=== PATIENT | male | born 1955 | race Caucasian/White ===

== ENCOUNTER 2016-05-23 07:55 | Inpatient (IN) | payer OTHER ==
[~2016-05-23 07:55] MED LIST: Buffered Lidocaine 1% SYR 3ML* 3 ML/SYR SYRINGE INTRADERM ONE
[2016-05-23] MEDS ORDERED: Buffered Lidocaine 1% SYR 3ML* 3 ML/SYR SYRINGE ONE (08:31)
[2016-05-23] MEDS ORDERED: Clindamycin 900 MG IVPREMIX(* 900 MG/50 ML SDV IV ONE (08:31)
[2016-05-23] MEDS ORDERED: fentaNYL* 50 MCG/ML 2 ML VIAL (100 MCG VIAL) ONE ×2 (09:41→11:52)
[2016-05-23] MEDS ORDERED: Midazolam* 1 MG/ML 5 ML VIAL (5 MG) ONE (09:41)
[2016-05-23] MEDS ORDERED: Famotidine IV* 10 MG/ML 2 ML (20 mg) ONE (09:45)
[2016-05-23] MEDS ORDERED: Bupivacaine 0.25% EPI 200,000* 30 ML SDV ONE (10:22)
[2016-05-23] MEDS ORDERED: Ondansetron INJ* 2 MG/ML VIAL IV PRN ×2 (10:30→12:40)
[2016-05-23] MEDS ORDERED: PROCHLORPERAZINE INJ 5 MG/ML 2 ML VIAL IV PRN (10:30)
[2016-05-23] MEDS ORDERED: fentaNYL* 50 MCG/ML 2 ML VIAL (100 MCG VIAL) IV PRN (10:30)
[2016-05-23] MEDS ORDERED: Acetaminophen TAB* 325 MG PO PRN ×2 (10:30→12:40)
[2016-05-23] MEDS ORDERED: Scopolamine 1.5 mg* PATCH TRANSDERM PRN (10:30)
[2016-05-23] MEDS ORDERED: HYDROmorphone INJ* 1 MG/ML CARPUJECT SYRINGE IV PRN (10:30)
[2016-05-23] MEDS ORDERED: Cisatracurium* 2 MG/ML MDV 10 ML ONE (10:47)
[2016-05-23] MEDS ORDERED: Lidocaine 2% PF * 5 ML VIAL ONE (11:07)
[2016-05-23] MEDS ORDERED: Propofol* 10 MG/ML 20 ML BTL IV PUSH ONE (11:07)
[2016-05-23] MEDS ORDERED: EPHEDrine (Pressors)* 50 MG/ML VIAL ONE (11:07)
[2016-05-23] MEDS ORDERED: Dexamethasone IV* 4 MG/ML 1 ML (4 MG) ONE (11:07)
[2016-05-23] MEDS ORDERED: Desflurane* 240 ML INH ONE (11:11)
[2016-05-23] MEDS ORDERED: Hetastarch in NS* 500 ML IV ONE (11:28)
[2016-05-23] MEDS ORDERED: Ketorolac INJ* 30 MG/ML 1 ML VIAL ONE (12:30)
[2016-05-23] MEDS ORDERED: diPHENhydraMINE PO* 25 MG PO PRN (12:40)
[2016-05-23] MEDS ORDERED: Morphine INJ* 4 MG/ML 1 ML CARPUJECT IV PRN (12:40)
[2016-05-23] MEDS ORDERED: Bisacodyl SUPP* 10 MG SUPP PR PRN (12:40)
[2016-05-23] MEDS ORDERED: Ondansetron TAB* 4 MG PO PRN (12:40)
[2016-05-23] MEDS ORDERED: oxyCODONE/Acetamin 5/325 MG* TAB PO PRN (12:40)
[2016-05-23] MEDS ORDERED: diPHENhydraMINE IV* 50 MG/ML 1 ml VIAL (BENADRYL) IV PRN (12:40)
[2016-05-23] MEDS ORDERED: Polyethylene Glycol 3350* 17 GM PACKET PO PRN (12:40)
[2016-05-23] MEDS ORDERED: D5W 1/2 NS 1000 ML BAG* 1,000 ML IV SCH (13:00)
[2016-05-23] MEDS ORDERED: guaiFENesin LIQ* 100 MG/5 ML UDC PO PRN (13:09)
[2016-05-23] MEDS ORDERED: fentaNYL* 50 MCG/ML 5 ML VIAL (250 MCG VIAL) ONE (13:11)
--- NOTE | 2016-05-23 14:11 | RAD ---
Indication: Left hip arthroplasty Single view of the pelvis demonstrates left hip arthroplasty with dislocation of the left femoral component. IMPRESSION: Dislocation of the left femoral component.
[2016-05-23] MEDS: oxyCODONE/Acetamin 5/325 MG* TAB PO PRN ×3 (14:33→23:01)
[2016-05-23] MEDS: Nicotine Inhaler* 10 MG AMP Q2H PRN CRAVING INH ×2 (16:35→21:01)
[2016-05-23] MEDS ORDERED: Warfarin TAB(*) 6 MG PO ONE (17:00)
[2016-05-23] MEDS ORDERED: Mouth Piece, Nicotine* 1 EACH CARTRIDGE INH ONE (17:00)
[2016-05-23] MEDS: Clindamycin 600 MG IVPREMIX(* 600 MG/50 ML SDV IV SCH (17:56)
[2016-05-23] MEDS: Nicotine GUM* 2 MG PO PRN ×2 (17:56→21:01)
[2016-05-23] MEDS: Magnesium Hydroxide LIQ* 30 ML UDC PO SCH (20:52)
[2016-05-23] MEDS: Docusate CAP* 100 MG PO SCH (20:57)
[2016-05-23] MEDS: Heparin VIAL(*) 5000 UNITS/ML VIAL (FIVE THOUSAND) SUBCUT SCH (20:58)
--- NOTE | 2016-05-23 21:08 | OP ---
DATE OF OPERATION: 05/23/16 - ROOM #346 DATE OF : 59 SURGEON: Bryan Elizondo MD ASSISTANTS: 1. Parris Moore RPA 2. Dominique Gonzales RPA ANESTHESIOLOGIST: Tom Quick MD ANESTHESIA: General. PRE-OP DIAGNOSIS: Avascular necrosis, left hip. POST-OP DIAGNOSIS: Avascular necrosis, left hip. OPERATIVE PROCEDURE: Left total hip arthroplasty. INDICATIONS: Mr. Rodriguez is a 60-year-old male who had presented back in March with left hip pain. His x-rays had looked quite good and I had sent him for an MRI and this showed very specific avascular necrosis of the femoral head. I discussed with him that a total hip arthroplasty should work well to decrease his pain and improve his function. We did talk some about trying a core decompression or one of other surgeries for AVN, but when he heard that they may not work and that he might still need a total hip, he thought a total hip would probably be the best way to go. I discussed with him that a total hip would be reasonable, as would be the other ones, but doing the total hip is very understandable. Risks of surgery such as infection, scar formation, stiffness, DVT, pulmonary embolism, leg length discrepancy, instability, and eventual hardware failure were some of the risks discussed. He had been declared medically optimized and wished to proceed. ESTIMATED BLOOD LOSS: 150 cc. COMPLICATIONS: None. HARDWARE: Carlos A #9 reduced neck and L taper, -3.5 36-mm head, 50-mm Trilogy cup with 0-degree vitamin E impregnated liner. DESCRIPTION OF PROCEDURE: The patient was brought to the OR and general endotracheal anesthesia was established. Pena catheter was placed. He was then rolled into the right lateral decubitus position and an axillary roll was placed. Posts were also padded and he was nice and secure on the table. Left hip area was prepped and then draped. Skin over the incisional area was infiltrated using 0.25% Marcaine with epinephrine. A total of 60 cc would be used through the case. Incision was made centered over the greater trochanter extending proximally and distally for about 10 cm. Incision was carried down through the skin and subcutaneous fat. Small bleeders encountered were ligated using electrocautery. The fascia was exposed and sharply incised. Muscle was bluntly split proximally. Nice exposure of the greater trochanteric bursa was obtained. Bursa was taken down using electrocautery and with palpation, I could easily feel his piriformis tendon. Sharp Hohmann was then placed under the gluteus medius/gluteus minimus and nice exposure of piriformis and short external rotators were obtained. Electrocautery was used to take down piriformis, short external rotators, and capsule together. When the capsule was entered, small gush of joint fluid was encountered. T-capsulotomy was made and the hip was easily dislocated. Damage on the femoral head could be seen and was seen even easier once the femoral head was resected. Anterior C-retractor was placed as was a broad Hohmann inferiorly and nice exposure of the acetabulum was obtained. Labrum was sharply taken down from the edges of the acetabulum and reaming was begun with a 44. I had templated him to a 52, but even the 44 appeared as if it would almost have a [id number] fit. He was deepened just a little bit as I did not have much room to work medially. He was then reamed with a 46 and then at 47, I still had some cartilage left and decision was made to continue to a 50. 48- and 49-mm reamers were run and at that point, I had nice bleeding bone along the entirety. 50-mm cup was then impacted into place. Nice secure bite was obtained. Two screws were placed and a wonderful bite was obtained. Trial liner was placed and attention was turned to the proximal femur. Box osteotome was used to open the femoral canal and a canal finder was placed. I had some chatter just with passing the canal finder as he had very good bone of his femur. Beginning with a 4 broach, he was progressively broached and I had templated him to a 9. I had templated that I would need the reduced neck with a minus head because of his anatomy. He was progressively broached and actually with a 7.5, I thought I had a nice solid fit and he was trialed first with a standard neck and a minus head. He was reduced but he was long and tight. Reduced neck was then placed with a minus head and his leg length appeared to be right on the money. He also seemed to have very good stability as I could flex him up past 120 degrees, internally rotate him, and he would not even start to lever out until past 60 degrees. In full adduction, coming even to 90 degrees, he did not fully come out. He was a little more tight in extension as the hip itself would not come much past about 25 degrees, but he was not that tight as the knee did not extend while bringing him into extension. With taking him out the 7.5, however, was just a little bit loose and a 9 broach was then placed. With the [address], he was again taken through range of motion and this time, the broach did not loosen. Trial instrumentation was removed and the flat liner was impacted into place. 9 reduced neck M/L taper was also impacted into place. -3.5 mm, 32-mm head was also impacted and he was re-reduced. With taking him through motion, it appeared that he may occasionally twinge right on the posterior lip of the acetabulum and this was taken down using the osteotome and a rongeur. Only a small piece of bone was taken down, but this did seem to improve that he would not hit on that posterior aspect. Capsule and short external rotators including piriformis were repaired to the back side of the greater trochanter. Taking him now through motion seemed to improve his stability as well and hip was again copiously pulse lavaged. Remainder of the local was given. Fascia was repaired using interrupted #1 Vicryl sutures. Subcutaneous tissues were reapproximated using 2-0 Vicryl's. Skin was closed using berta. Sterile dressing was applied. The patient was then rolled on to the hospital bed and extubated in the OR. He was then stable on transfer to the recovery room. [id number]/[facility] #: [id number] [facility] CENTERLeonor
[2016-05-24] MEDS: Clindamycin 600 MG IVPREMIX(* 600 MG/50 ML SDV IV SCH ×2 (01:02→10:01)
[2016-05-24] MEDS: oxyCODONE/Acetamin 5/325 MG* TAB PO PRN ×4 (03:39→21:16)
[2016-05-24] MEDS: Nicotine Inhaler* 10 MG AMP Q2H PRN CRAVING INH (06:47)
[2016-05-24] MEDS: Nicotine GUM* 2 MG PO PRN ×2 (06:47→19:11)
[2016-05-24 06:55] LABS: Hematocrit 30 % (42-52); Hemoglobin 10.2 g/dl (14.0-18.0)
[2016-05-24 07:11] LABS: BUN/Creatinine Ratio 10.8 (8-20); Calcium 7.8 mg/dL (8.6-10.3); EGFR African American 139.7 (>60); EGFR Non-African American 108.6 (>60)
--- NOTE | 2016-05-24 07:54 | PN ---
Progress Note - Progress Note SOAP: Subjective: []Patient seen at bedside. Doing well, pain well managed. Denies chest pain, shortness of breath, dizziness. Objective: [] Vital Signs Temp 97.8 F 05/24/16 03:35 Pulse 81 05/24/16 03:35 Resp 20 05/24/16 05:39 BP 115/67 05/24/16 03:35 Pulse Ox 98 05/24/16 03:35 Intake & Output 05/23/16 05/24/16 05/24/16 18:59 06:59 18:59 Intake Total 2360 3563 Output Total 330 1100 Balance 2030 2463 Weight 162 lb Intake: IV Fluids 1900 963 CLINDAMYCIN 900 MG 50 D5W 1/ NS 963 LR 1400 Lactated Ringer's 450 Oral 460 2600 Output: Pena 300 1100 Residual 30 Pena 16 Fr 30 Other: # Bowel Movements 0 Laboratory Results - last 24 hr 05/24/16 05/24/16 05/24/16 06:42 06:42 06:42 Hgb 10.2 L Hct 30 L INR (Anticoag Therapy) 1.21 H Sodium 128 L Potassium 4.0 Chloride 100 L Carbon Dioxide 24 Anion Gap 4 BUN 8 Creatinine 0.74 Est GFR ( Amer) 139.7 Est GFR (Non-Af Amer) 108.6 BUN/Creatinine Ratio 10.8 Glucose 154 H Calcium 7.8 L Left hip dressing with small amount of old bloody drainage calf soft and non tender +DF/PF left ankle Bishop's negative neuro intact Assessment: []s/p Left total hip arthoplasty POD#1 Plan: []Pt/OT WBAT Coumadin 8 mg today/ SCD's Discharge home 2 days Await path report from pathology
[2016-05-24] MEDS: Docusate CAP* 100 MG PO SCH ×2 (08:14→21:19)
[2016-05-24] MEDS: oxyCODONE TAB* 5 MG TAB PO PRN (08:15)
[2016-05-24] MEDS: Nicotine PATCH 21 MG/24 HR* PATCH TRANSDERM SCH (08:16)
[2016-05-24] MEDS: Heparin VIAL(*) 5000 UNITS/ML VIAL (FIVE THOUSAND) SUBCUT SCH ×2 (08:16→21:16)
[2016-05-24] MEDS: Magnesium Hydroxide LIQ* 30 ML UDC PO SCH ×2 (08:19→21:19)
[2016-05-24] MEDS ORDERED: Warfarin TAB(*) 4 MG PO ONE (17:00)
[2016-05-24] MEDS: Nicotine Patch Removal NOTE PATCH OFF SCH (21:19)
[2016-05-25] MEDS: oxyCODONE/Acetamin 5/325 MG* TAB PO PRN ×5 (01:42→21:52)
[2016-05-25 06:39] LABS: Hematocrit 32 % (42-52); Hemoglobin 10.7 g/dl (14.0-18.0)
[2016-05-25] MEDS: Docusate CAP* 100 MG PO SCH ×2 (08:54→21:54)
[2016-05-25] MEDS: Magnesium Hydroxide LIQ* 30 ML UDC PO SCH ×2 (08:54→21:54)
[2016-05-25] MEDS ORDERED: Influenza VAC *QUAD* 2016-17* 0.5 ML SYRINGE IM ONE (09:00)
[2016-05-25] MEDS: Nicotine PATCH 21 MG/24 HR* PATCH TRANSDERM SCH (09:01)
[2016-05-25] MEDS ORDERED: Warfarin TAB(*) 5 MG PO ONE (17:00)
[2016-05-25] MEDS: Nicotine Patch Removal NOTE PATCH OFF SCH (21:55)
[2016-05-26] MEDS: oxyCODONE TAB* 5 MG TAB PO PRN (01:17)
[2016-05-26] MEDS: oxyCODONE/Acetamin 5/325 MG* TAB PO PRN ×2 (06:40→11:02)
[2016-05-26 07:09] LABS: Hematocrit 31 % (42-52); Hemoglobin 10.5 g/dl (14.0-18.0)
--- NOTE | 2016-05-26 07:50 | PN ---
Progress Note - Progress Note SOAP: Subjective: []Patient seen at bedside. Pain well managed. Would like to go home today. Objective: [] Vital Signs Temp 98.1 F 05/26/16 04:21 Pulse 91 05/26/16 04:21 Resp 20 05/26/16 06:40 BP 110/71 05/26/16 04:21 Pulse Ox 97 05/26/16 04:21 Intake & Output 05/25/16 05/26/16 05/26/16 18:59 06:59 18:59 Intake Total 1490 740 Output Total 1075 1800 Balance 415 -1060 Intake: Oral 1490 740 Output: Urine 1075 1800 Laboratory Results - last 24 hr 05/26/16 05/26/16 06:44 06:44 Hgb 10.5 L Hct 31 L INR (Anticoag Therapy) 1.46 H Left hip incision with moderate eccymosis moderate serosanguenous drainage on ABD New dressing applied calf non tender and soft Bishop's sign is negative +DF/PF- neuro intact Assessment: []s/p left total hip arthroplasty POD#3 Plan: []Discharge home today Coumadin INR Mondays and .
[2016-05-26 08:07] VITALS: BP 122/64
[2016-05-26] MEDS: Nicotine PATCH 21 MG/24 HR* PATCH TRANSDERM SCH (08:51)
[2016-05-26] MEDS: Docusate CAP* 100 MG PO SCH (08:57)
[2016-05-26] MEDS: Magnesium Hydroxide LIQ* 30 ML UDC PO SCH (08:57)
[2016-05-26] MEDS ORDERED: Scopolamine PATCH Remove* 1 NOTE MISC PATCH OFF ONE (10:31)
--- NOTE | 2016-05-26 22:42 | DS ---
DISCHARGE SUMMARY: DATE OF ADMISSION: 05/23/16 DATE OF DISCHARGE: 05/26/16 ATTENDING SURGEON: Dr. Bryan Elizondo. ADMISSION DIAGNOSIS: Avascular necrosis of the left hip. DISCHARGE DIAGNOSIS: Avascular necrosis of the left hip. SURGERY PERFORMED: Left total hip arthroplasty. HOSPITAL COURSE: The patient is a 60-year-old male who suffered with left hip pain worsening in March 2016. He underwent an MRI, which revealed avascular necrosis of the femoral head. Options of cord decompression versus total hip arthroplasty were discussed by Dr. Elizondo and the patient elected to proceed with total hip arthroplasty. Under-standing the risks and benefits of the procedure, the patient elected to proceed with the above surgical procedure and was taken to the operating room under the care of Dr. Bryan Elizondo on the date of 05/23/16. The patient tolerated the aforementioned procedure without any intraoperative or postoperative complications. Postoperatively, the patient progressed satisfactorily with his physical therapy and occupational therapy goals. He was placed on Coumadin for postoperative DVT prophylaxis. He has been able to bear weight as tolerated on the left lower extremity. It was felt he had no postoperative medical complications. He was found to be stable for discharge from medical and orthopedic standpoint on the date of 05/26. DISCHARGE MEDICATIONS: The patient will be sent home Coumadin 2 mg tablets provided, recommend 8 mg of Coumadin on the evening of 05/26/16, 4 mg of Coumadin on the evening of 05/27/16, 6 mg of Coumadin on the evening of 05/28/16 , and 4 mg of Coumadin on the evening of 05/29/16. The patient will undergo INR labs every Monday and with dosages to follow his lab results. He will be provided a prescription of Percocet 5/325 mg 1 to 2 tablets q.4 hours p.r.n. pain #90 with no refills. CONDITION ON DISCHARGE: The patient is stable. Alert and oriented x3. Vital signs are stable. Incision is healing without evidence of infection. He has moderate ecchymosis and mild amount of serosanguineous drainage. Recommend he change his dressing daily as needed. He may shower at home. No bathtub or soaking of the incision. Recommend to follow up in the office with Dr. Elizondo in roughly 3 to 4 weeks for clinical reevaluation. Recommend calling the office if he has any problems with his wound or any medication questions. ANUPAM BERNAL [id number]/[facility] #: [id number] JR
== END 2016-05-26 12:30 | disposition home health service (06) | DRG 301 ==
LOC: AA 07:55 → SSU 14:09
PROVIDERS: ADMIT Orthopaedic Surgery; ATTEND Orthopaedic Surgery
PROC: 0SRB02A Replacement of Left Hip Joint with Metal on Polyethylene Synthetic Substitute, Uncemented, Open Approach (ICD-10-PCS; principal; 2016-05-23 09:30)
PROC: 3E0234Z Introduction of Serum, Toxoid and Vaccine into Muscle, Percutaneous Approach (ICD-10-PCS; 2016-05-25)
DX: M87.852 Other osteonecrosis, left femur (principal); J44.9 Chronic obstructive pulmonary disease, unspecified; Z88.8 Allergy status to other drugs, medicaments and biological substances; Z88.0 Allergy status to penicillin; Z80.9 Family history of malignant neoplasm, unspecified; D16.22 Benign neoplasm of long bones of left lower limb; G89.29 Other chronic pain; Z23 Encounter for immunization; Z82.49 Family history of ischemic heart disease and other diseases of the circulatory system; F17.210 Nicotine dependence, cigarettes, uncomplicated
CPT/HCPCS: 36415; 72170; 80048; 85014; 85018; 85610; 88304; 88311; 90686; A9270-GY; C1713; C1776; J1100; J1644; J1885; J2250; J2704; J3010

== ENCOUNTER 2018-08-22 21:42 | Emergency (ER) | payer OTHER ==
[2018-08-22] MEDS ORDERED: oxyCODONE/Acetamin 5/325 MG* TAB PO ONE (22:01)
--- NOTE | 2018-08-22 22:12 | ED ---
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 He rates his pain as a 7/10 in severity. He has swelling over his right wrist. Per triage note, the patient admits to EtOH use today. - History of Current Complaint Chief Complaint: EDExtremityUpper Stated Complaint: POSSIBLE BROKEN RIGHT WRIST PER PT Time Seen by Provider: 08/22/18 21:58 Hx Obtained From: Patient, EMS Mechanism Of Injury: Fall From A Standing Position Onset/Duration: Started Hours Ago, Still Present Timing: Constant Severity Initially: Moderate Severity Currently: Moderate Pain Location: Other: - right wrist Aggravating Factor(s): Nothing Alleviating Factor(s): Nothing Associated Signs & Symptoms: Negative: Fever - Allergies/Home Medications Allergies/Adverse Reactions: Allergies Allergy/AdvReac Type Severity Reaction Status Date / Time MS Penicillins [Penicillins] Allergy Intermediate Hives Verified 05/16/16 10:07 PMH/Surg Hx/FS Hx/Imm Hx Musculoskeletal History: Reports: Hx Arthritis - LOW BACK, WRISTS, HANDS, HIPS Sensory History: Denies: Hx Deafness EENT History: Denies: Hx Deafness - Surgical History Surgery Procedure, Year, and Place: 1993 VASECTOMY GENEIA GEN. 2004 EXTERNOL FIXATOR LEFT WRIST [place] Hx Anesthesia Reactions: No Infectious Disease History: No Infectious Disease History: Denies: Traveled Outside the [place] in Last 30 Days - Family History Known Family History: Negative: Blood Disorder - Social History Alcohol Use: Daily Alcohol Amount: 4-5 drinks Substance Use Type: Reports: None Smoking Status (MU): Heavy Every Day Tobacco Smoker Type: Cigarettes Amount Used/How Often: 1 PPD 40 YRS Length of Time of Smoking/Using Tobacco: 40 YRS Have You Smoked in the Last Year: Yes Review of Systems Negative: Fever Positive: Arthralgia - right wrist pain, Other - positive: swelling over right wrist All Other Systems Reviewed And Are Negative: Yes Physical Exam - Summary Physical Exam Summary: VITAL SIGNS: Reviewed. GENERAL: Patient is a well-developed and nourished MALE who is lying comfortable in the stretcher. Patient is not in any acute respiratory distress. HEAD AND FACE: No signs of trauma. No ecchymosis, hematomas or skull depressions. No sinus tenderness. EYES: PERRLA, EOMI x 2, No injected conjunctiva, no nystagmus. EARS: Hearing grossly intact. Ear canals and tympanic membranes are within normal limits. MOUTH: Oropharynx within normal limits. NECK: Supple, trachea is midline, no adenopathy, no JVD, no carotid bruit, no c- spine tenderness, neck with full ROM CHEST: Symmetric, no tenderness at palpation LUNGS: Clear to auscultation bilaterally. No wheezing or crackles. CVS: Regular rate and rhythm, S1 and S2 present, no murmurs or gallops appreciated. ABDOMEN: Soft, non-tender. No signs of distention. No rebound no guarding, and no masses palpated. Bowel sounds are normal. EXTREMITIES: Swelling over right wrist, decreased ROM due to pain, neurovascularly intact distally. NEURO: Alert and oriented x 3. No acute neurological deficits. Speech is normal and follows commands. SKIN: Dry and warm Triage Information Reviewed: Yes Vital Signs On Initial Exam: Initial Vitals Temp Pulse Resp BP Pulse Ox 98.0 F 78 18 98/65 98 08/22/18 21:49 08/22/18 21:49 08/22/18 21:49 08/22/18 21:49 08/22/18 21:49 Vital Signs Reviewed: Yes Procedures - Splinting Right Upper Extremity Location: wrist Hand-Made Type: orthoglass Splint: sugar-tong Pre-Proc Neuro Vasc Exam: normal Post-Proc Neuro Vasc Exam: normal - Joint Reduction Right Joint Reduction Site: wrist (R) Specify Other Joint Reduced: Right wrist used hematomal block, lidocaine 2% with epi Reduction Attempts: 1 - Manipulation of right wrist manipulation of right wrist to reduce displacement Pre-Procedure NV Exam: Yes Post Joint Reduction Film: there is no change Diagnostics - Vital Signs Vital Signs Temp Pulse Resp BP Pulse Ox 08/22/18 21:49 98.0 F 78 18 98/65 98 - Laboratory Lab Statement: Any lab studies that have been ordered have been reviewed, and results considered in the medical decision making process. - Radiology wrist x-ray Radiology Interpretation Completed By: ED Physician Summary of Radiographic Findings: Distal radial fracture with dorsal displacement. Pending official imaging report. second wrist x-ray Radiology Interpretation Completed By: ED Physician Summary of Radiographic Findings: There is no change. Pending official imaging report. 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 The physical exam revealed swelling over right wrist, decreased ROM due to pain, neurovascularly intact distally. Wrist x-ray showed Distal radial fracture with dorsal displacement. In the ED course the patient was given Percocet PO, and Lidocaine. There was a reduction and splinting of the right wrist. Manipulation of the right wrist was to reduce displacement. The patient will be discharged with a prescription for Percocet and was instructed to follow up with yemi Luna, tomorrow. The patient is agreeable with this plan. - Diagnoses Provider Diagnoses: Distal radius fracture, right Discharge - Sign-Out/Discharge Documenting (check all that apply): Patient Departure - DC Patient Received Moderate/Deep Sedation with Procedure: No - Discharge Plan Condition: Stable Disposition: HOME Prescriptions: oxyCODONE/Acetamin 5/325 MG* [Percocet 5/325 TAB*] 1 tab PO Q6H PRN #14 tab MDD 4 PRN Reason: Pain Referrals: Nigel Brennan DO [Primary Care Provider] - (2-3 days) Nigel Cardona MD [Medical Doctor] - 1 Day Additional Instructions: PLEASE RETURN TO THE ED IMMEDIATELY FOR WORSENING OR CONCERNING SYMPTOMS. - Billing Disposition and Condition Condition: STABLE Disposition: Home - Attestation Statements Document Initiated by Scribe: Yes Documenting Scribe: Franc Pope Provider For Whom Paola is Documenting (Include Credential): Rachel Tyler MD Scribe Attestation: Franc Strickland, kamilleibed for Rachel Tyler MD on 08/23/18 at 0559. Scribe Documentation Reviewed: Yes Provider Attestation: The documentation as recorded by the Franc lawton accurately reflects the service I personally performed and the decisions made by John green MD Status of Scribe Document: Viewed
[2018-08-22] MEDS ORDERED: Lidocaine 2% EPI 1:200000 MPF*10-20 ML VIAL ONE (22:25)
--- OUTSIDE RECORDS SUMMARY | 2018-08-22 22:33 | XMS REPORT | Continuity of Care Document ---
:1955 External Reference #:[id number] Author Name Thomas Ayala M.D. Address [address] [place] [address] Care Team Providers Name Role Phone Session Reggie MORALEZ Care Team Information Entertainment Centre Manager Unavailable Session Reggie MORALEZ Primary Care Physician Unavailable Payers Date Identification Numbers Payment Provider Subscriber Effective: 2018 Policy Number: [id number] [facility] Anirudh Rodriguez PayID: [id number] [address] [address] [place] [address] Advance Directives Description No Information Available Problems Description No Information Family History Date Family Member(s) Observation Comments Father Cancer Mother Cancer Social History Type Date Description Comments Sex Unknown 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 [employer] Tobacco Use Start: Unknown Current Cigarette Smoker 1 40 year history Pack Daily Tobacco Use Start: Unknown Never Smoked Cigars Tobacco Use Start: Unknown Never Smoked A Pipe Smokeless Tobacco Never Used Smokeless Tobacco ETOH Use PT Consumes Alcohol Daily Tobacco Use Start: Unknown Heavy tobacco smoker (more than 10 cigarettes/day) Smoking Status Reviewed: 08/20/18 Heavy tobacco smoker (more than 10 cigarettes/day) Allergies, Adverse Reactions, Alerts Active Allergies Reaction Severity Comments Date Penicillin 07/25/2018 Medications Active Medications SIG Qnty Indications Ordering Provider Date Multivitamin Adult every day Unknown Chewtabs Mucinex 1 by mouth twice Unknown 600mg Tablets ER a day 12HR Claritin-D 24 Hour Unknown 10-240mg Tablets ER 24HR History Medications Vitamin D3 Adult Gummies 2 daily Unknown - 07/24/2018 1000Unit Chewtabs Ginkoba 1 by mouth every day Unknown - 07/24/2018 40mg Tablets Aspirin 81 1 by mouth every day Unknown - 07/24/[address] Zinc 1 by mouth every day Unknown - 07/24/2018 30mg Capsules Claritin 1 by mouth every day Unknown - 08/20/2018 10mg Capsules Immunizations Description No Information Available Vital Signs Date Vital Result Comment 08/20/2018 3:09pm Weight 168.00 lb Weight 76.205 kg Height 65 inches 5'5" Height in cm's 165.1 cm BMI (Body Mass Index) 28.0 kg/m2 07/25/2018 9:25am Weight 168.00 lb Weight 76.205 kg Height 65 inches 5'5" Height in cm's 165.1 cm BMI (Body Mass Index) 28.0 kg/m2 Results Description No Information Available Procedures Date Code Description Status 08/20/2018 81445 Tympanostomy W/Tube Local Or Topical Anes. Completed 07/25/2018 18234 Nasopharyngoscopy Completed Encounters Type Date Location Provider Dx Diagnosis Office Visit 07/25/2018 Yazmin Still H92.02 Otalgia, left ear 9:15a 04/17/07 Mary Ayala H65.02 Acute serous otitis media, left ear Plan of Treatment 08/20/2018 - Thomas Ayala M.D.H65.02 Acute serous otitis media, left earComments:The patient had a myringotomy with tube insertion on the left side for a persistent effusion. I putin Ofloxacin drops. He may have some clear drainage. If it looks infected he should call for some drops.Follow up:FU with Dilcia in a month.
[2018-08-23 00:14] VITALS: BP 111/66
[2018-08-23 11:45] LABS: Hepatitis C Antibody Nonreactive (Nonreactive)
== END 2018-08-23 | disposition home or self-care (01) ==
LOC: ED 21:42
DX: S52.501A Unspecified fracture of the lower end of right radius, initial encounter for closed fracture (principal); S52.601A Unspecified fracture of lower end of right ulna, initial encounter for closed fracture; M25.531 Pain in right wrist; F17.210 Nicotine dependence, cigarettes, uncomplicated; W01.0XXA Fall on same level from slipping, tripping and stumbling without subsequent striking against object, initial encounter; Y92.9 Unspecified place or not applicable; Z88.0 Allergy status to penicillin
CPT/HCPCS: 25680; 36415; 86703; 86803; 99282; A9270-GY

== ENCOUNTER 2018-08-29 11:39 | Day surgery (SDC) | payer OTHER ==
[~2018-08-29 11:39] MED LIST changes: -Buffered Lidocaine 1% SYR 3ML* 3 ML/SYR SYRINGE INTRADERM ONE; +Buffered Lidocaine 1% SYRIN* 1 ML/SYRINGE INTRADERM ONE; +Lactated Ringers 1000 ML Bag* 1,000 ML IV SCH; +Sodium Citrate/Citric Acid* 15 ML UDC PO ONE
[2018-08-29] MEDS ORDERED: Sodium Citrate/Citric Acid* 15 ML UDC ONE (12:01)
[2018-08-29] MEDS ORDERED: Clindamycin 900 MG IVPREMIX(* 900 MG/50 ML SDV IV ONE (12:01)
[2018-08-29] MEDS ORDERED: fentaNYL* 50 MCG/ML 2 ML VIAL (100 MCG VIAL) ONE ×3 (14:07→16:56)
[2018-08-29] MEDS ORDERED: Midazolam* 1 MG/ML 2 ML VIAL (2 MG) ONE (14:07)
[2018-08-29] MEDS ORDERED: Lidocaine 1% MPF wEPI 200,000* 30 ML SDV ONE (14:08)
[2018-08-29] MEDS ORDERED: Lidocaine 2% PF * 5 ML VIAL ONE (14:08)
[2018-08-29] MEDS ORDERED: Propofol* 10 MG/ML 20 ML BTL ONE (14:08)
[2018-08-29] MEDS ORDERED: Bupivacaine 0.5% W/EPI SDV* 30 ML VIAL ONE ×2 (14:18→14:36)
[2018-08-29] MEDS ORDERED: Naloxone* 0.4 MG/ML 1 ML VIAL IV PRN (15:30)
[2018-08-29] MEDS ORDERED: Ondansetron INJ* 2 MG/ML VIAL IV PRN (15:35)
[2018-08-29] MEDS: fentaNYL* 50 MCG/ML 2 ML VIAL (100 MCG VIAL) IV PRN ×4 (16:31→17:17)
[2018-08-29] MEDS ORDERED: HYDROcodone/ACETAMIN 5-325 MG* 1 TAB ONE (16:38)
[2018-08-29] MEDS ORDERED: Ketorolac INJ* 30 MG/ML 1 ML VIAL ONE (16:38)
[2018-08-29 18:04] VITALS: BP 155/91
--- NOTE | 2018-08-30 01:39 | OP ---
DATE OF OPERATION: 08/29/18 [facility] DATE OF : 59 SURGEON: Nigel Cardona MD [place] TECHNICIAN: ANUPAM Schumacher. A physician land surveyor assistant was required for the length of the procedure for help with instrumentation, retraction, the patient positioning, and closure. ANESTHESIOLOGIST: Dr. Marshall Saini. ANESTHESIA: General anesthesia, 7 cc of 0.5% Marcaine with epinephrine local anesthesia. PRE-OP DIAGNOSES: 1. Right distal radius fracture, displaced. 2. Possible right distal ulna fracture. POST-OP DIAGNOSES: 1. Right distal radius fracture, displaced. 2. No clear right distal ulna fracture. OPERATIVE PROCEDURE: Open reduction internal fixation, right distal radius fracture with a volar locking plate. INDICATIONS: The patient is a 62-year-old man, left-hand dominant, retired, who injured his right wrist on 08/22/18, seven days preoperatively when he tripped over his dog and fell on an outstretched right hand and wrist. The patient went to the emergency room where he was closed reduced and splinted. I saw the patient in clinic on 08/23/18. I got new x-rays of the right wrist and also evaluated pre and postreduction films from the emergency room. The patient had a right distal radius fracture with significant displacement. Significant dorsal translation and increased dorsal tilt at the fracture site. Extraarticular but clearly very unstable and very displaced. There was possibly a distal ulnar fracture of the ulnar styloid process, dorsally, present as well. I could not be sure of this as I reviewed all the radiographs. I encouraged the patient to cut down or quit smoking to help the bony healing. Discussed risks and potential complications. The patient opted for surgery. ANTIBIOTICS: Clindamycin 900 mg IV. IV FLUIDS: See Anesthesia note. TOURNIQUET TIME: 89 minutes at 250 mmHg, right upper arm. [id number] TIME: 89 minutes. RADIATION EXPOSURE: Mini C-arm utilized. Time of radiation exposure not currently available. SPECIMEN: None. IMPLANTS: Synthes polyaxial volar distal locking plate, 3 hole, wide. COMPLICATIONS: None. ESTIMATED BLOOD LOSS: Minimal. DESCRIPTION OF PROCEDURE: In the preoperative holding, the patient signed a written consent. Operative extremity was marked in the preoperative holding. The patient went back to the operating room and stayed supine on the stretcher. The patient was sedated and LMA was placed. Hand table was applied to the stretcher. A tourniquet was applied to the right upper arm. The right upper extremity was then prepped and draped. Surgical time- out performed. Esmarch was applied and tourniquet elevated to 250 mmHg. A standard skin incision, longitudinal, 7 cm, overlying the FCR tendon was made. Dissected down to the FCR tendon. Incised the sheath, superficial and then deep to the FCR tendon. Retracted that. Retracted the FPL ulna. Incised the pronator quadratus of the radial aspect of the distal radius. Encountered the fracture site. Irrigation. Debridement. The patient had significant displacement at the fracture site and very unstable at first. This would not have healed or would have gone very poorly nonoperatively. I debrided the fracture site with the rongeur and a curette. I removed several flecks of bone. There was a comminuted window in the central component of the distal fragment that was loosened and this was removed. With some digital manipulation, I was able to reduce the fracture. I placed two 0.062 K-wires across the radial styloid to hold provisional fixation of the fracture. Sized the plates. Decided that this would be best for a wide plate. I pinned the plate in place. Mini C-arm imaging confirmed good reduction and good placement of plate. I next placed a 2.4-mm nonlocking screw through the oval hole proximally. I then slid the plate a little proximally. I placed a nonlocking 2.4-mm screw in the distal most row. I placed this after removing the 2 radial styloid pins and effecting an improved volar tilt. I next placed some locking screws distally. I obtained some mini-C arm imaging, which showed great reduction and good placement of screws. I visually inspected the plate and showed excellent reduction and placement of plate. I removed my distal non-locking screw and placed all locking screws with the exception of any oval hole, I placed a 2.7-mm nonlocking screw. Rest of the screws were 2.4-mm locking. Final x-rays obtained. Irrigation. I closed the FCR subsheath to the pronator quadratus partially with multiple stitches, [id number] using Vicryl 2-0 suture. Subcutaneous closure with buried simple stitches using Vicryl 3-0 suture. Running closure of the skin with a nylon 4-0 suture. Local anesthesia injected approximately 7 cc just proximal to the incision site. Xeroform, 4x4s , sterile Webril, volar splint, made a plaster overwrapped with an Hernan bandage. The patient was placed in sling. The patient had LMA removed and taken to the PACU. DISPOSITION: The patient discharged home when medically stable. The patient will remain in the volar splint until he follows up in clinic with me. Instructions to move his fingers. I provided a limited prescription for [place] to take as needed for pain and the patient was given 3 days of Bactrim for infection prophylaxis given his smoking history. The patient will follow up with me in the clinic in approximately 10 days postoperative with x-rays, removal of sutures, and transition into a removable wrist brace and to start a physical therapy. [id number]/CPS #: [id number] MTDD
== END 2018-08-29 18:06 | disposition home or self-care (01) ==
LOC: OR 11:39
PROVIDERS: ATTEND Orthopaedic Surgery
DX: S52.551A Other extraarticular fracture of lower end of right radius, initial encounter for closed fracture (principal); Z72.0 Tobacco use; Z88.0 Allergy status to penicillin; W01.0XXA Fall on same level from slipping, tripping and stumbling without subsequent striking against object, initial encounter; Y92.9 Unspecified place or not applicable
CPT/HCPCS: 76000; A9270-GY; C1713; C1776; J1885; J2001; J2250; J2704; J3010

== ENCOUNTER 2021-08-12 08:29 | Observation (INO) ==
[~2021-08-12 08:29] MED LIST changes: +Buffered Lidocaine 1% SYRIN 1 ml INTRADERM ONE; -Buffered Lidocaine 1% SYRIN* 1 ML/SYRINGE INTRADERM ONE; -Lactated Ringers 1000 ML Bag* 1,000 ML IV SCH; +Lactated Ringers 1000 ml BAG 1,000 ML IV SCH; -Sodium Citrate/Citric Acid* 15 ML UDC PO ONE
[2021-08-12] MEDS ORDERED: Clindamycin 900 MG/D5W BAG 900 MG/50 ML BAG IVPB ONE (08:48)
[2021-08-12] MEDS ORDERED: Lidocaine 1% VIAL 10 MG/ML VIAL ONE ×2 (09:24→09:26)
[2021-08-12] MEDS ORDERED: fentaNYL 250 mcg/5 ml 50 MCG/ML 5 ml VIAL (250 MCG) ONE (09:25)
[2021-08-12] MEDS ORDERED: Propofol 10 MG/ML 20 ML BTL ONE ×2 (09:26→11:12)
[2021-08-12] MEDS ORDERED: Midazolam 5 mg/5 ml VIAL 1 mg/ml 5 ml VIAL (5 mg) ONE (09:26)
[2021-08-12] MEDS ORDERED: Bupivacaine 0.5% SDV PF 30ML VIAL ONE (10:23)
[2021-08-12] MEDS ORDERED: Ondansetron 4 mg VIAL 2 MG/ML 2 ml VIAL IV PRN ×2 (10:48→12:44)
[2021-08-12] MEDS ORDERED: Naloxone 0.4 mg VIAL 0.4 mg/ml 1 ml VIAL IV PRN (10:48)
[2021-08-12] MEDS ORDERED: Rocuronium 50 mg VIAL 10 mg/ml 5 ml VIAL (50 mg) ONE (11:31)
[2021-08-12] MEDS ORDERED: HYDROmorphone 0.5 MG/0.5 ML SYRINGE ONE (12:27)
[2021-08-12] MEDS ORDERED: HYDROmorphone 1 MG/1 ML SYRINGE IV SLOW PU PRN (12:43)
[2021-08-12] MEDS ORDERED: HYDROmorphone 1 MG/1 ML SYRINGE ONE (13:10)
[2021-08-12] MEDS: HYDROmorphone 1 MG/1 ML SYRINGE IV PRN ×5 (13:11→13:50)
[2021-08-12] MEDS: Nicotine PATCH 14 MG/24 HR PATCH TRANSDERM SCH (15:15)
[2021-08-12] MEDS ORDERED: Potassium Chlor 20 meq TAB.ER PO SCH (21:00)
[2021-08-13 08:08] VITALS: BP 124/66
[2021-08-13] MEDS: Nicotine PATCH 14 MG/24 HR PATCH TRANSDERM SCH (10:29)
== END 2021-08-13 12:45 | disposition home or self-care (01) ==
LOC: SSU 08:29 → OR 08:29
PROVIDERS: ADMIT Surgery Surgical Critical Care; ATTEND Surgery Surgical Critical Care

== ENCOUNTER 2023-03-02 20:09 | Inpatient (IN) ==
[2023-03-02] MEDS ORDERED: Orphenadrine Citrate INJ 30 mg/ml 2 ml VIAL (60 mg) IV ONE (21:02)
[2023-03-02 21:50] LABS: ABS Basophils 0.1 10^3/uL (0.0-0.1); ABS Eosinophils 0.1 10^3/uL (0.0-0.5); ABS Lymphocytes 0.8 10^3/uL (1.0-4.8); ABS Monocytes 1.4 10^3/uL (0.0-1.1); ABS Neutrophils 7.4 10^3/uL (1.5-7.6); Eosinophil % 1.2 %; Hematocrit 34.9 % (38-53); Hemoglobin 12.3 g/dL (13.2-16.3); Lymphocyte % 8.2 %; Mean Corpuscular Hemoglobin 34.1 pg (27-33); Mean Corpuscular Hgb Conc 35.2 g/dL (31-36); Mean Platelet Volume 7.9 fL (7.5-11.2); Platelet Count 262 10^3/uL (150-450); Red Cell Distribution Width 13.4 % (12-17); White Blood Count 9.7 10^3/uL (3.6-10.2)
[2023-03-02 22:06] LABS: Albumin 3.9 g/dL (3.2-5.2); Albumin/Globulin Ratio 1.1 (1-3); Calcium 9.3 mg/dL (8.6-10.3); Creatinine, Serum 1.69 mg/dL (0.67-1.17); Globulin 3.4 g/dL (2-4); Potassium 3.6 mmol/L (3.5-5.0); Total Bilirubin 0.7 mg/dL (0.2-1.0); Total Protein 7.3 g/dL (6.4-8.9); eGFR CKD-EPI 44.5 (>60)
[2023-03-03 01:27] LABS: Urine Appearance Clear; Urine Bilirubin Negative (Negative); Urine Blood Negative (Negative); Urine Color Yellow; Urine Glucose Negative (Negative); Urine Ketones Negative (Negative); Urine Nitrite Negative (Negative); Urine Protein Negative (Negative); Urine Specific Gravity 1.005 (1.002-1.030); Urine Urobilinogen Negative (Negative)
[2023-03-03] MEDS ORDERED: Morphine 2 MG/ML SYRINGE IV ONE ×2 (02:00→06:18)
[2023-03-03 02:14] LABS: Folate 12.63 ng/mL (5.90-24.80)
[2023-03-03] MEDS ORDERED: Nicotine Lozenge mini 2 MG LOZNG.MINI MT PRN (02:35)
[2023-03-03] MEDS ORDERED: NS 0.9% 500 ml BAG 500 ML IV SCH (03:00)
[2023-03-03 03:34] LABS: Urine Osmo 183 mOsm/kg (150-1150)
[2023-03-03 05:45] LABS: Hematocrit 32.8 % (38-53); Hemoglobin 11.7 g/dL (13.2-16.3); Mean Corpuscular Hgb Conc 35.8 g/dL (31-36); Mean Corpuscular Volume 97.7 fL (80-97); Mean Platelet Volume 7.7 fL (7.5-11.2); Platelet Count 247 10^3/uL (150-450); Red Blood Count 3.35 10^6/uL (4.06-5.63); Red Cell Distribution Width 13.7 % (12-17); White Blood Count 8.4 10^3/uL (3.6-10.2)
[2023-03-03 06:03] LABS: Calcium 8.9 mg/dL (8.6-10.3); Creatinine, Serum 1.44 mg/dL (0.67-1.17); Potassium 3.7 mmol/L (3.5-5.0); eGFR CKD-EPI 53.9 (>60)
[2023-03-03] MEDS: Enoxaparin 40 MG/0.4 ML SYR SUBCUT SCH (08:10)
[2023-03-03] MEDS ORDERED: KCL 20 MEQ/100 ML IVPREMIX 20 MEQ/100 ML BAG IV ONE (09:26)
[2023-03-03 10:22] LABS: Magnesium 1.6 mg/dL (1.9-2.7)
[2023-03-03] MEDS ORDERED: Magnesium Sulfate 2 gm BAG 2 GM/50 ML BAG IVPB ONE (10:32)
[2023-03-03] MEDS ORDERED: Magnesium Hydroxide LIQ 30 ML UDC PO PRN (19:59)
[2023-03-03] MEDS: Polyethylene Glycol 3350 17 GM PACKET PO SCH (21:04)
[2023-03-04 07:24] LABS: Albumin 3.6 g/dL (3.2-5.2); Albumin/Globulin Ratio 1.2 (1-3); Calcium 9.1 mg/dL (8.6-10.3); Creatinine, Serum 1.1 mg/dL (0.67-1.17); Globulin 3.1 g/dL (2-4); Magnesium 1.9 mg/dL (1.9-2.7); Potassium 4.1 mmol/L (3.5-5.0); Total Bilirubin 0.8 mg/dL (0.2-1.0); Total Protein 6.7 g/dL (6.4-8.9); eGFR CKD-EPI 74.5 (>60)
[2023-03-04] MEDS: Polyethylene Glycol 3350 17 GM PACKET PO SCH (08:56)
[2023-03-04] MEDS: Enoxaparin 40 MG/0.4 ML SYR SUBCUT SCH (08:56)
[2023-03-04] MEDS: Albuterol HFA INHALER 8 gm MDI INH PRN (22:05)
[2023-03-05 09:13] LABS: Albumin 3.7 g/dL (3.2-5.2); Albumin/Globulin Ratio 1.2 (1-3); Calcium 9.1 mg/dL (8.6-10.3); Creatinine, Serum 1.07 mg/dL (0.67-1.17); Globulin 3.1 g/dL (2-4); Magnesium 1.6 mg/dL (1.9-2.7); Potassium 4.2 mmol/L (3.5-5.0); Total Protein 6.8 g/dL (6.4-8.9)
[2023-03-05] MEDS: Polyethylene Glycol 3350 17 GM PACKET PO SCH (09:52)
[2023-03-05] MEDS: Enoxaparin 40 MG/0.4 ML SYR SUBCUT SCH (09:52)
[2023-03-05] MEDS: Albuterol HFA INHALER 8 gm MDI INH PRN ×2 (10:02→20:56)
[2023-03-05] MEDS: Nicotine Lozenge mini 4 MG LOZNG.MINI MT PRN ×3 (10:03→20:52)
[2023-03-05] MEDS ORDERED: Magnesium Sulfate 2 gm BAG 2 GM/50 ML BAG IVPB ONE (10:21)
[2023-03-05] MEDS ORDERED: Magnesium Sulfate IV 1GM/100ML 1 GM/100 ML BAG IV ONE (12:21)
[2023-03-06 08:40] LABS: Creatinine, Serum 0.99 mg/dL (0.67-1.17); Magnesium 1.9 mg/dL (1.9-2.7); Potassium 4.4 mmol/L (3.5-5.0); eGFR CKD-EPI 84.5 (>60)
[2023-03-06 09:38] VITALS: BP 128/73
[2023-03-06] MEDS: Polyethylene Glycol 3350 17 GM PACKET PO SCH (09:39)
[2023-03-06] MEDS: Enoxaparin 40 MG/0.4 ML SYR SUBCUT SCH (09:42)
[2023-03-06] MEDS: Nicotine Lozenge mini 4 MG LOZNG.MINI MT PRN (09:44)
[2023-03-06] MEDS: Albuterol HFA INHALER 8 gm MDI INH PRN (09:46)
[2023-03-06 09:48] LABS: Rapid COVID-19 Molecular Undetected (Undetected)
== END 2023-03-06 12:25 | DRG 536 ==
LOC: EDHOLD 20:09 → ED 20:09 → SUATTDRO 22:17 → EDHOLD 03-03 00:20 → SSU 03-03 01:21 → SUATTDRO 03-04 10:47
PROVIDERS: ADMIT Internal Medicine; ATTEND Hospitalist